=== PATIENT | female | born 1985 | race Caucasian/White ===

== ENCOUNTER → 2016-05-21 | Outpatient (CLI) | payer OTHER | LOC: CT 15:18 | DX: E28.2 Polycystic ovarian syndrome (principal); E66.9 Obesity, unspecified; R19.00 Intra-abdominal and pelvic swelling, mass and lump, unspecified site; K76.0 Fatty (change of) liver, not elsewhere classified; Z91.040 Latex allergy status | CPT/HCPCS: J7050; Q9962 ==

== ENCOUNTER → 2016-06-16 | Outpatient (CLI) | payer OTHER | LOC: KOH-I 08:31 | DX: S46.011A Strain of muscle(s) and tendon(s) of the rotator cuff of right shoulder, initial encounter (principal); R93.7 Abnormal findings on diagnostic imaging of other parts of musculoskeletal system | CPT/HCPCS: 73221 ==

== ENCOUNTER → 2016-08-18 | Outpatient (CLI) | payer OTHER | LOC: KOH-I 16:00 | DX: R10.9 Unspecified abdominal pain (principal); R31.9 Hematuria, unspecified; N20.0 Calculus of kidney | CPT/HCPCS: 74176 ==

== ENCOUNTER → 2020-05-07 | Outpatient (CLI) | payer OTHER ==
[~2020-05-07] MED LIST: BIOTIN PO; CRYSELLE-28 TA1 EACH PO; DOCUSATE SODIU100 MG PO; HYDROCODONE-AC1 EAC1 PO; IBUPROFEN800 MG PO; IRON 100 PLUS1 EACH PO; MULTI FOR HER1 EACH PO; PRENATAL VITAM1 EAC3 PO; PRILOSEC OTC20 MG PO; PROAIR HFA8.5 GM INH; TOPAMAX50 MG PO; VITAMIN C 500500 MG PO; VITAMIN D250000 UNIT PO; VITAMIN D35000 UNI1 PO; VRAYLAR PO; XYZAL5 MG PO
[2020-05-07 15:45] LABS: HEMOGLOBIN 13.1 gm/dl (12.3-15.3); RED BLOOD COUNT 4.59 M/UL (4.00-5.10); WHITE BLOOD COUNT 10.5 K/UL (4.5-11.0)
[2020-05-07 16:40] LABS: BUN/CREATININE RATIO 6 (0-10)
== END ==
LOC: GENOP 15:07
PROVIDERS: Obstetrics & Gynecology
DX: O99.891 Other specified diseases and conditions complicating pregnancy (principal); R10.11 Right upper quadrant pain; R51.9 Headache, unspecified; Z3A.36 36 weeks gestation of pregnancy
CPT/HCPCS: 36415; 59025; 80053; 82570; 84156; 84550; 85025

== ENCOUNTER 2020-06-04 16:40 | Inpatient (IN) | payer OTHER ==
[~2020-06-04] VITALS: Ht 167.6 cm; Wt 113.4 kg
[~2020-06-04 16:40] MED LIST changes: -DOCUSATE SODIU100 MG PO; -HYDROCODONE-AC1 EAC1 PO; -IBUPROFEN800 MG PO; -PRENATAL VITAM1 EAC3 PO; -XYZAL5 MG PO
[2020-06-04 18:09] LABS: HEMOGLOBIN 13.1 gm/dl (12.3-15.3); RED BLOOD COUNT 4.58 M/UL (4.00-5.10); WHITE BLOOD COUNT 9.5 K/UL (4.5-11.0)
[2020-06-04] MEDS ORDERED: PRENATAL VITAM1 EAC3 PO (18:48)
[2020-06-04] MEDS ORDERED: XYZAL5 MG PO (18:48)
[2020-06-05] MEDS ORDERED: HYDROCODONE-AC1 EAC1 PO (20:30)
[2020-06-05] MEDS ORDERED: IBUPROFEN800 MG PO (20:30)
[2020-06-05] MEDS ORDERED: DOCUSATE SODIU100 MG PO (20:30)
[2020-06-06 05:58] LABS: HEMOGLOBIN 11.3 gm/dl (12.3-15.3)
== END 2020-06-07 17:29 | disposition home or self-care (01) | DRG 788 ==
LOC: GENOP 16:40 → OB 17:14
PROVIDERS: ADMIT Obstetrics & Gynecology
PROC: 0U7C7ZZ Dilation of Cervix, Via Natural or Artificial Opening (ICD-10-PCS; 2020-06-05)
PROC: 10907ZC Drainage of Amniotic Fluid, Therapeutic from Products of Conception, Via Natural or Artificial Opening (ICD-10-PCS; 2020-06-05)
PROC: 3E0P7VZ Introduction of Hormone into Female Reproductive, Via Natural or Artificial Opening (ICD-10-PCS; 2020-06-05)
PROC: 3E033VJ Introduction of Other Hormone into Peripheral Vein, Percutaneous Approach (ICD-10-PCS; 2020-06-05)
PROC: 3E0234Z Introduction of Serum, Toxoid and Vaccine into Muscle, Percutaneous Approach (ICD-10-PCS; 2020-06-05)
PROC: 10D00Z1 Extraction of Products of Conception, Low, Open Approach (ICD-10-PCS; principal; 2020-06-05 20:21)
DX: O48.0 Post-term pregnancy (principal); Z3A.40 40 weeks gestation of pregnancy; Z37.0 Single live birth; Z23 Encounter for immunization; O76 Abnormality in fetal heart rate and rhythm complicating labor and delivery; O77.0 Labor and delivery complicated by meconium in amniotic fluid; Z88.1 Allergy status to other antibiotic agents; Z91.040 Latex allergy status
CPT/HCPCS: 36415; 81001; 82800; 85014; 85018; 85025; 90471; 90715; C9113; J1580; J1885; J2001; J2250; J2274; J2300; J2590; J2795; J3010; J7030; J7120; U0002

== ENCOUNTER 2020-10-15 23:02 | Emergency (ER) | payer OTHER ==
[~2020-10-15 23:02] MED LIST changes: +DOCUSATE SODIU100 MG PO; +HYDROCODONE-AC1 EAC1 PO; +IBUPROFEN800 MG PO; +PRENATAL VITAM1 EAC3 PO; +XYZAL5 MG PO
[2020-10-16 05:02] LABS: WHITE BLOOD COUNT 7.7 K/UL (4.5-11.0)
[2020-10-16 05:03] LABS: HEMOGLOBIN 13.5 gm/dl (12.3-15.3); RED BLOOD COUNT 5.07 M/UL (4.00-5.10)
[2020-10-16 05:12] LABS: BUN/CREATININE RATIO 11 (0-10)
== END 2020-10-16 08:22 | disposition home or self-care (01) ==
LOC: ER1 23:02
PROVIDERS: Physician Assistant Medical
DX: R07.9 Chest pain, unspecified (principal); Z90.49 Acquired absence of other specified parts of digestive tract; Z91.040 Latex allergy status; Z88.1 Allergy status to other antibiotic agents
CPT/HCPCS: 71045; 80053; 82550; 82553; 83874; 84484; 85025; 85379; 93005; 99285; Q9967